=== PATIENT | female | born 1980 | race Caucasian/White ===

== ENCOUNTER 2017-01-22 22:10 | Emergency (ER) | payer OTHER ==
[~2017-01-22] VITALS: Ht 152.4 cm; Wt 77.5 kg
[2017-01-22 22:27] VITALS: Ht 152.4 cm; Wt 77.5 kg
--- NOTE | 2017-01-23 00:31 | ERD ---
ER Documentation Chief Complaint Date/Time DATE: 01/23/17 TIME: 00:26 Chief Complaint ACCIDENTALLY FELL FACE FORWARD 16 WEEKS , RLQ, HEAD NOSE PAIN. HPI 36-year-old female presents here in emergency department for complaints of nasal pain facial pain abdominal pain after falling for one after losing balance. Patient is approximately 16 weeks . Patient denies any loss of consciousness after the injury. Patient denies any nausea or vomiting. Patient denies any vaginal bleeding. Patient denies nausea or vomiting. Patient denies any dizziness. ROS All systems reviewed and are negative except as per history of present illness. Medications Home Meds Reported Medications [None] Unknown Strength No Conflict Check 01/23/17 Allergies Allergies: Coded Allergies: No Known Allergy (Unverified , 01/06/15) PMhx/Soc Medical and Surgical Hx: pt denies Medical Hx, pt denies Surgical Hx Hx Alcohol Use: No Hx Substance Use: No Hx Tobacco Use: No Smoking Status: Never smoker FmHx Family History: No coronary disease, No diabetes, No other Physical Exam Vitals Vital Signs Date Time Temp Pulse Resp B/P Pulse Ox O2 Delivery O2 Flow Rate FiO2 01/22/17 22:27 97.9 101 18 122/58 98 Physical Exam GENERAL: The patient is well developed and appropriate for usual state of health, in no apparent distress. CHEST: Clear to auscultation bilaterally. There are no rales, wheezes or rhonchi. HEART: Regular rate and rhythm. No murmurs, clicks, rubs or gallops. No S3 or S4. ABDOMEN: Soft, nontender and nondistended. Good bowel sounds. No rebound or guarding. No gross peritonitis. No gross organomegaly or masses. No Tyler sign or McBurney point tenderness. BACK: No midline or flank tenderness. EXTREMITIES: Equal pulses bilaterally. There is no peripheral clubbing, cyanosis or edema. No focal swelling or erythema. Full range of motion. Grossly neurovascularly intact. NEURO: Alert and oriented. Cranial nerves 2-12 intact. Motor strength in all 4 extremities with 5/5 strength. Sensation grossly intact. Normal speech and gait. SKIN: There is no apparent rash or petechia. The skin is warm and dry. HEMATOLOGIC AND LYMPHATIC: There is no evidence of excessive bruising or lymphedema. No gross cervical, axillary, or inguinal lymphadenopathy. Result Diagram: 01/23/17 0035 Results 24 hrs Laboratory Tests Test 01/23/17 00:35 White Blood Count 10.310^3/ul Red Blood Count 3.8110^6/ul Hemoglobin 12.0g/dl Hematocrit 35.8% Mean Corpuscular Volume 94.0fl Mean Corpuscular Hemoglobin 31.5pg Mean Corpuscular Hemoglobin Concent 33.5g/dl Red Cell Distribution Width 12.8% Platelet Count 14299^3/UL Mean Platelet Volume 10.2fl Neutrophils % 68.4% Lymphocytes % 23.3% Monocytes % 6.4% Eosinophils % 1.2% Basophils % 0.3% Nucleated Red Blood Cells % 0.0/100WBC Neutrophils # 7.010^3/ul Lymphocytes # 2.410^3/ul Monocytes # 0.710^3/ul Eosinophils # 0.110^3/ul Basophils # 0.010^3/ul Nucleated Red Blood Cells # 0.010^3/ul Urine Color YELLOW Urine Clarity CLEAR Urine pH 6.0 Urine Specific R[place]ston 1.011 Urine Ketones NEGATIVEmg/dL Urine Nitrite NEGATIVEmg/dL Urine Bilirubin NEGATIVEmg/dL Urine Urobilinogen NEGATIVEmg/dL Urine Leukocyte Esterase NEGATIVELeu/ul Urine Microscopic RBC 0/HPF Urine Microscopic WBC 1/HPF Urine Bacteria FEW/HPF Urine Hemoglobin 1+mg/dL Urine Glucose NEGATIVEmg/dL Urine Total Protein NEGATIVEmg/dl PROCEDURE: ULTRASOUND OBSTETRICAL CLINICAL INDICATION: 36-year-old female with trauma. TECHNIQUE: Multiple sonographic images of the pelvis were obtained. The images were reviewed on a PACS workstation. COMPARISON: No prior studies are available for comparison. FINDINGS: The cervix is not well visualized. There is a single viable intrauterine gestation. Cardiac activity is present with 148 beats per minute. There is a variable presentation. Measurements were made in order to determine age. The results are as follows: BPD = 3.27 cm, HC = 11.80 cm, AC = 9.88 cm, FL = 1.81 cm. This yields and estimated gestational age of approximately 15 weeks 6 days. The estimated date of delivery is July 11, 2017. The EFW = 132 +/- 20 g. The GP is 38%. The placenta is posterior. There is no evidence for an abruption or placenta previa. There is a normal amount of amniotic fluid with a maximal vertical pocket of 3.5 cm. IMPRESSION: Single viable intrauterine gestation of approximately 15 weeks 6 days. The estimated date of delivery is July 11, 2017. .Jake Mendoza MD, MD Date Time Electronically viewed and signed by .Jkae Mendoza MD, on 01/23/2017 01:36 Procedures/MDM Medical Decision Making: Patient's s/s most likely consistent with abdominal wall contusion from wall. Pt has viable at 15 weeks, no subchorionic hemorrhage noted.There is low suspicion for abdominal emergencies at this time. Patients abdominal exam is normal at this time. Patients radiology exam does not show any abdominal emergencies at this time. There is low suspicion for appendicitis, cholecystitis, abdominal aortic aneurysms or peritonitis at this time. There is low suspicion for sepsis. Patient appears well and is hemodynamically stable. Patient's nasal pain and facial pain headache consistent with a head contusion and nasal contusion. No symptoms of any deformity in the nose. No suspicion for any fractures. There is low suspicion for neurological emergencies at this time since patients neurologic exam is normal. Patient did not have any altered level consciousness, vomiting, changes in balance or memory after incident. Patients CT scan of the head not indicated at this time Disposition: Home. Condition: Stable Prescription Tylenol Instructions: Patient is advised to take medications as prescribed. Patient is advised to rest, ice on facial area. Patient is advised that if symptoms are worse, severe abdominal pain, uncontrolled vomiting, high fever, severe flank pain, worst signs and symptoms, to return to the emergency department immediately. Otherwise, patient can follow up with primary care doctor in 5-7 days. Departure Diagnosis: Primary Impression: Nasal contusion Encounter type: initial encounter Qualified Code: S00.33XA - Contusion of nose, initial encounter Additional Impressions: Head contusion Encounter type: initial encounter Contusion of head detail: scalp Qualified Code: S00.03XA - Contusion of scalp, initial encounter Abdominal wall contusion Encounter type: initial encounter Qualified Code: S30.1XXA - Contusion of abdominal wall, initial encounter Intrauterine Condition: Stable Patient Instructions: Contusion, Soft Tissue, Nasal Contusion, Scalp Contusion , No Wake Up Additional Instructions: Patient is advised to take medications as prescribed. Patient is advised to rest , ice on facial area. Patient is advised that if symptoms are worse, severe abdominal pain, uncontrolled vomiting, high fever, severe flank pain, worst signs and symptoms, to return to the emergency department immediately. Otherwise, patient can follow up with primary care doctor in 5-7 days. ROXANA ELLIOTT NP Jan 23, 2017 00:31
[2017-01-23 00:43] LABS: BASOPHILS % 0.3 % (0.0-2.0); EOSINOPHILS # 0.1 10^3/ul (0.0-0.5); EOSINOPHILS % 1.2 % (0.0-7.0); HEMATOCRIT 35.8 % (37.0-47.0); LYMPHOCYTES # 2.4 10^3/ul (0.8-2.9); LYMPHOCYTES % 23.3 % (15.0-51.0); MEAN CORPUSCULAR HEMOGLOBIN 31.5 pg (29.0-33.0); MEAN CORPUSCULAR HGB CONC 33.5 g/dl (32.0-37.0); MEAN PLATELET VOLUME 10.2 fl (7.4-10.4); MONOCYTE # 0.7 10^3/ul (0.3-0.9); MONOCYTES % 6.4 % (0.0-11.0); NEUTROPHILS % 68.4 % (39.0-77.0); PLATELET COUNT 233 10^3/UL (140-415); RED BLOOD COUNT 3.81 10^6/ul (4.20-5.40); RED CELL DISTRIBUTION WIDTH 12.8 % (11.5-14.5); WHITE BLOOD COUNT 10.3 10^3/ul (4.8-10.8)
[2017-01-23 00:53] LABS: ADD UMIC YES; UR ASCORBIC ACID NEGATIVE (NEGATIVE); UR BACTERIA FEW /HPF (NONE SEEN); UR BILIRUBIN (Dip) NEGATIVE (NEGATIVE); UR BLOOD (Dip) 1+ mg/dL (NEGATIVE); UR CLARITY CLEAR (CLEAR); UR COLOR YELLOW (YELLOW); UR GLUCOSE (Dip) NEGATIVE (NEGATIVE); UR KETONES (Dip) NEGATIVE (NEGATIVE); UR LEUKOCYTE ESTERASE (Dip) NEGATIVE Leu/ul (NEGATIVE); UR NITRITE (Dip) NEGATIVE (NEGATIVE); UR RBC 0 /HPF (0-5); UR SPECIFIC GRAVITY (Dip) 1.011 (1.003-1.030); UR TOTAL PROTEIN (Dip) NEGATIVE (NEGATIVE); UR UROBILINOGEN (Dip) NEGATIVE (NEGATIVE)
--- NOTE | 2017-01-23 01:36 | RADRPT ---
AMENDMENT: 01/23/2017 2:02:12 AM Jake Mendoza MD There is a voice recognition error within the impression where 50 was substituted for 15. The [facility] is impression is as follows: IMPRESSION: Single viable intrauterine gestation of approximately 15 weeks 6 days. The estimated date of delive ry is July 11, 2017. PROCEDURE: ULTRASOUND OBSTETRICAL CLINICAL INDICATION: 36-year-old female with trauma. TECHNIQUE: Multiple sonographic images of the pelvis were obtained. The images were reviewed on a PACS workstation. COMPARISON: No prior studies are available for comparison. FINDINGS: The cervix is not well visualized. There is a single viable intrauterine gestation. Cardiac activit y is present with 148 beats per minute. There is a variable presentation. Measurements were made in order to determine age. The results are as follows: BPD = 3.27 cm, HC = 11.80 cm, AC = 9.88 cm, FL = 1.81 cm. This yields and estimated gestational age of approximately 15 weeks 6 days. The estimated date of delivery is July 11, 2017. The EFW = 132 +/- 20 g. The GP is 38%. The placenta is posterior. There is no evidence for an abruption or placenta previa. There is a normal amount of amniotic fluid with a maximal vertical pocket of 3.5 cm. IMPRESSION: Single viable intrauterine gestation of approximately 50 weeks 6 days. The estimated date of delive ry is July 11, 2017. .Jake Mendoza MD, Date Time Electronically viewed and signed by .Jake Mendoza MD, on 01/23/2017 02:02 .Gwendolyn
[2017-01-23] MEDS ORDERED: ACET500C5 PO (02:03)
== END 2017-01-23 02:23 | disposition home or self-care (01) ==
LOC: FTE 22:10
DX: O9A.211 Injury, poisoning and certain other consequences of external causes complicating pregnancy, first trimester (principal); S00.33XA Contusion of nose, initial encounter; S00.03XA Contusion of scalp, initial encounter; S30.1XXA Contusion of abdominal wall, initial encounter; R10.2 Pelvic and perineal pain; W18.39XA Other fall on same level, initial encounter; Y92.9 Unspecified place or not applicable; Z3A.16 16 weeks gestation of pregnancy
CPT/HCPCS: 76805; 81001; 84702; 85025; 86900; 86901; Z7502

== ENCOUNTER 2017-07-14 09:33 | Inpatient (IN) | END 2017-07-16 17:55 | disposition home or self-care (01) | DRG 775 ==

== ENCOUNTER 2017-11-03 13:33 | Emergency (ER) | END 2017-11-03 16:31 | disposition home or self-care (01) ==

== ENCOUNTER 2017-11-15 07:06 | Day surgery (SDC) | END 2017-11-15 12:20 | disposition home or self-care (01) ==

== ENCOUNTER 2017-12-19 15:22 | Emergency (ER) | END 2017-12-19 19:56 | disposition home or self-care (01) ==

== ENCOUNTER 2018-02-03 21:28 | Emergency (ER) | END 2018-02-04 02:31 | disposition home or self-care (01) ==

== ENCOUNTER 2018-09-05 07:38 | Emergency (ER) | payer MEDICAID ==
[~2018-09-05] VITALS: Ht 157.5 cm; Wt 75.3 kg
[~2018-09-05 07:38] MED LIST: ACET500C5 PO; ALBU8.5H8 INH; AMOX500C2 PO; BEN25 PO; EPIN0.3P4 INJ; IBUP-1542 PO; LORA10TA72 PO; NAPR-985 PO; PRED20TA PO
[2018-09-05 07:44] VITALS: Ht 157.5 cm; Wt 75.3 kg
[2018-09-05] MEDS ORDERED: KETOROLAC 30 MG INJ IM STA (09:16)
[2018-09-05] MEDS ORDERED: IBUP-1542 PO (09:22)
[2018-09-05] MEDS ORDERED: CYCL10TA7 PO (09:22)
[2018-09-05 10:06] VITALS: BP 133/64; PULSE 78; RESP 18
--- NOTE | 2018-09-05 12:44 | ERD ---
ER Documentation Chief Complaint Chief Complaint RT SIDE HEADACHE , RT NECK PAIN X 2 WEEKS , NO NEURO DEFICITS HPI 37-year-old woman complains of right scalp and right lateral neck pain radiating down her right upper arm down to the hand x2 weeks. She is a right-handed woman and pain is worse with movement of the right upper extremity. She denies paresis or paresthesias, no weakness, no fevers or chills, no chest pain or shortness of breath, no headache or blurry vision. ROS All systems reviewed and are negative except as per history of present illness. Medications Home Meds Active Scripts Cyclobenzaprine Hcl* (Cyclobenzaprine Hcl*) 10 Mg Tablet, 10 MG PO TID PRN for MUSCLE SPASMS, #20 TAB Prov:DE GEORGE MD 09/05/18 Ibuprofen* (Motrin*) 600 Mg Tab, 600 MG PO Q8 PRN for PAIN AND/OR INFLAMMATION, #30 TAB Prov:DE GEORGE MD 09/05/18 Albuterol Sulfate* (Proair HFA*) 8.5 Gm Hfa.aer.ad, 2 PUFF INH Q4H PRN for WHEEZING AND SOB, #1 INHALER Prov:LINDA GALICIA 02/04/18 Loratadine (Loratadine) 10 Mg Tab.rapdis, 10 MG PO DAILY, #30 Prov:VENESSAGAYATRILINDA 02/04/18 Diphenhydramine Hcl* (Benadryl*) 25 Mg Cap, 25 MG PO Q6 PRN for ITCHING/RASH, #30 TAB Prov:LINDA GALICIA 02/04/18 Prednisone* (Prednisone*) 20 Mg Tab, 60 MG PO DAILY for 5 Days, TAB Prov:VENESSAILADORAJULIETASYLVIA Radhika 02/04/18 Epinephrine (Epipen 2-Abdiel) 0.3 Mg/0.3 Ml Pen.injctr, 1 EA INJ ONCE PRN for ALLERGIC REACTION, #1 EA Prov:PASLINDA MENDIETA 02/04/18 Ibuprofen* (Motrin*) 600 Mg Tab, 600 MG PO Q6, #30 TAB Prov:ALEKSANDRACARMEN KULKARNI C 12/19/17 Amoxicillin* (Amoxicillin*) 500 Mg Cap, 500 MG PO BID for 10 Days, CAP Prov:ALEKSANDRACARMEN C 12/19/17 Acetaminophen* (Tylophen*) 500 Mg Capsule, 1 CAP PO Q6H PRN for PAIN AND OR ELEVATED TEMP, #30 CAP Prov:DANYA QUINTERO PA-C 11/03/17 Naproxen* (Naprosyn*) 500 Mg Tablet, 500 MG PO BID PRN for PAIN AND/OR I NFLAMMATION, #30 TAB Prov:MARYCARMENDANYA Jalloh PA-C 11/03/17 Allergies Allergies: Coded Allergies: No Known Allergy (Unverified , 07/14/17) PMhx/Soc History of Surgery: No Anesthesia Reaction: No Hx Neurological Disorder: No Hx Respiratory Disorders: No Hx Cardiac Disorders: No Hx Psychiatric Problems: No Hx Miscellaneous Medical Probl: No Hx Alcohol Use: No Hx Substance Use: No Hx Tobacco Use: No Smoking Status: Never smoker FmHx Family History: No diabetes Physical Exam Vitals Vital Signs Date Temp Pulse Resp B/P (MAP) Pulse Ox O2 O2 Flow FiO2 Time Delivery Rate 09/05/18 78 18 133/64 99 Room Air 10:06 (87) 09/05/18 98.2 89 18 134/68 98 07:44 (90) Physical Exam Const: No acute distress, afebrile Resp: Clear to auscultation bilaterally Cardio: Regular rate and rhythm, no murmurs Skin: No petechiae or rashes. No skin erythema or induration, no ulcers or vesicles Back: No midline or flank tenderness Ext: No cyanosis, or edema. Calves are symmetrical, pulses to the distal upper and lower extremities are equal and bilateral. Patient has mild reproducible tenderness over the right posterior right lateral neck over the right deltoid. No bony deformity Neur: Awake and alert x3, no focal deficits or facial asymmetry Psych: Normal Mood and Affect Results 24 hrs Laboratory Tests Test 09/05/18 09:30 POC Beta HCG, Qualitative NEGATIVE Current Medications Medications Dose Sig/Francisco Start Time Status Last (Trade) Ordered Route PRN Stop Time Admin Dose Reason Admin Ketorolac 30 mg ONCE STAT 09/05/18 DC 09/05/18 Tromethamine IM 09:16 09:47 (Toradol) 09/05/18 09:17 Procedures/MDM I administered Toradol 30 mg IM x1. Patient feels much better at this time, and vital signs are normal, symptoms have improved. I did give strict instructions to return to the ED if symptoms co ntinue or worsen, patient will otherwise follow-up with primary care physician. Patient understood instructions and agreed to plan. Disclaimer: Inadvertent spelling and grammatical errors are likely due to EHR/dictation software use and do not reflect on the overall quality of patient care. Also, please note that the electronic time recorded on this note does not necessarily reflect the actual time of the patient encounter. Departure Diagnosis: Primary Impression: Neck strain Encounter type: initial encounter Qualified Codes: S16.1XXA - Strain of muscle, fascia and tendon at neck level, initial encounter Additional Impression: Muscle spasm Ruled Out: Muscle spasm disorder of tensor tympani Condition: Good Patient Instructions: Muscle Spasm Referrals: HAN CORTEZ (PCP) DE GEORGE MD Sep 05, 2018 12:44
== END 2018-09-05 10:09 | disposition home or self-care (01) ==
LOC: FTE 07:38
DX: S16.1XXA Strain of muscle, fascia and tendon at neck level, initial encounter (principal); M62.838 Other muscle spasm; X58.XXXA Exposure to other specified factors, initial encounter; Y92.9 Unspecified place or not applicable
CPT/HCPCS: 81025; 96372; J1885; Z7502